=== PATIENT | female | born 1960 | race Two or more races ===

== ENCOUNTER 2024-10-01 14:07 | Emergency (ER) | payer OTHER ==
[2024-10-01 14:21] VITALS: BP 110/71; RESP 18; TEMP 98.2; BMI 25.5
[2024-10-01 15:01] LABS: ABSOLUTE IMMATURE GRANULOCYTES 0.01 x10^3/uL (0.0-0.031); BASOPHILS # 0.06 x10^3/uL (0.01-0.08); EOSINOPHIL % 0.5 % (0.7-5.8); EOSINOPHILS # 0.03 x10^3/uL (0.04-0.36); HEMATOCRIT 38.4 % (34.1-44.9); HEMOGLOBIN 13.1 g/dL (11.2-15.7); MCHC 34.1 g/dl (32.2-35.5); MEAN CELL VOLUME 89.3 fl (79.4-94.8); MEAN PLT VOLUME 9.2 fl (9.4-12.3); MONOCYTE # 0.53 x10^3/uL (0.24-0.86); MONOCYTE % 9.6 % (4.7-12.5); PLATELET COUNT 259 x10^3/uL (182-369); RDW 11.9 % (12.4-16.4)
[2024-10-01 15:19] LABS: POTASSIUM 3.6 mmol/L (3.5-5.1)
[2024-10-01 15:20] LABS: CALCIUM 9.4 mg/dL (8.5-10.1)
[2024-10-01 15:21] LABS: ALBUMIN 3.7 g/dl (3.4-5.0)
[2024-10-01 15:24] LABS: CREATININE 0.7 mg/dL (0.55-1.3)
[2024-10-01 15:26] LABS: BILIRUBIN,TOTAL 0.5 mg/dL (0.2-1); TOT PROT 6.9 g/dl (6.4-8.2)
[2024-10-01 18:10] VITALS: PULSE 59
== END 2024-10-01 18:10 | disposition home or self-care (01) ==
LOC: JER 14:07
DX: J18.9 Pneumonia, unspecified organism (principal); R05.9 Cough, unspecified; R06.02 Shortness of breath; R53.81 Other malaise
CPT/HCPCS: 36415; 71046-TC-FY; 80053; 82550; 84484; 85025; 93005; 93010; 93971-TC; 99285-25